=== PATIENT | female | born 1955 | race Caucasian/White ===

== ENCOUNTER 2022-12-28 20:33 | Emergency (ER) | payer MEDICARE, OTHER ==
[~2022-12-28] VITALS: Ht 162.6 cm; Wt 97.5 kg
--- NOTE | 2022-12-28 20:33 | NUR ---
PT BIBA TO [facility] FOR BACK PAIN.
[2022-12-28] MEDS ORDERED: HYDROMORPHONE 1 MG/1 ML DISP.SYRIN IM ONE (20:45)
[2022-12-28] MEDS ORDERED: ONDANSETRON HCL 4 MG TABLET PO ONE (20:45)
--- NOTE | 2022-12-28 20:45 | NUR ---
AT BEDSIDE FOR EVAL.
--- NOTE | 2022-12-28 20:50 | NUR ---
PT TO CT VIA [facility].
[2022-12-28] MEDS ORDERED: HYDROMORPHONE 1 MG/1 ML DISP.SYRIN ONE (21:22)
[2022-12-28] MEDS ORDERED: ONDANSETRON ODT 4 MG TAB.RAPDIS ONE (21:22)
[2022-12-28] MEDS ORDERED: CALC667T8 PO (21:31)
[2022-12-28] MEDS ORDERED: FOLI0.8T2 PO (21:31)
[2022-12-28] MEDS ORDERED: LEVO75TA7 PO (21:31)
[2022-12-28] MEDS ORDERED: ATOR80TA PO (21:31)
[2022-12-28] MEDS ORDERED: LORA10CA PO (21:31)
[2022-12-28] MEDS ORDERED: ASPI81TA31 PO (21:31)
[2022-12-28] MEDS ORDERED: METO-358 PO (21:31)
[2022-12-28] MEDS ORDERED: HYDR-3980 PO (22:27)
[2022-12-28 23:00] VITALS: BP 135/88
--- NOTE | 2022-12-28 23:00 | NUR ---
PT A,A AND O X 3 WITH BACK PAIN 3, VSS AND NAD OBSERVED. FAMILY AT BEDSIDE.Patient discharged to home in stable condition. Written and verbal after care instructions given. Patient verbalizes understanding of instructions. Stressed follow up or return to ER for worsening s/s. PT LEFT VIA W/C TO CAR WITH SON AND DAUGHTER.
== END 2022-12-28 23:00 | disposition home or self-care (01) ==
LOC: ER 20:35
DX: M54.50 Low back pain, unspecified (principal); N18.6 End stage renal disease; Z99.2 Dependence on renal dialysis; Z79.82 Long term (current) use of aspirin; Z79.899 Other long term (current) drug therapy
CPT/HCPCS: 72131; A4663; J1170; Q0162